=== PATIENT | female | born 1975 | race Caucasian/White ===

== ENCOUNTER 2019-02-13 20:11 | Emergency (ER) | payer MEDICAID ==
[~2019-02-13] VITALS: Ht 157.5 cm; Wt 77.9 kg
[2019-02-13 20:14] VITALS: Ht 157.5 cm; Wt 77.9 kg
[2019-02-13] MEDS ORDERED: ALBU18HF INHALATION (20:50)
[2019-02-13] MEDS ORDERED: PROM5SYR2 PO (20:50)
[2019-02-13] MEDS ORDERED: NPH10OT LEFT EAR (20:50)
--- NOTE | 2019-02-13 20:56 | ERD ---
ER Documentation Chief Complaint Chief Complaint cough, runny nose, ST, and congestion x 1 week HPI 44-year-old female patient with complaint of cough, runny nose, sore throat, congestion, and left ear pain for the past week. Patient also states that she has been having intermittent fevers. The denies hemoptysis, abdominal pain, wheezing, respiratory distress, stridor, trismus, drooling, difficulty swallowing. Denies allergies. ROS All systems reviewed and are negative except as per history of present illness. Medications Home Meds Active Scripts Albuterol Sulfate* (Ventolin HFA*) 18 Gm Hfa.aer.ad, 2 PUFF INHALATION Q4H, #1 INHALER Prov:VANDA GUNTER 02/13/19 Neomycin/Polymyxin/Hydrocort* (Cortisporin* Otic) 10 Ml Susp, 4 DROP LEFT EAR QID for 7 Days, EA Prov:VANDA GUNTER 02/13/19 Promethazine HCl/Codeine (Prometh-Codein 6.25-10 mg/5 ml) 5 Ml Syrup, 5 ML PO Q4, #4 OZ Prov:VANDA GUNTER 02/13/19 Allergies Allergies: Coded Allergies: No Known Allergy (Unverified , 02/13/19) PMhx/Soc Hx Alcohol Use: No Hx Substance Use: No Hx Tobacco Use: No Smoking Status: Never smoker FmHx Family History: No diabetes, No coronary disease, No other Physical Exam Vitals Vital Signs Date Temp Pulse Resp B/P (MAP) Pulse Ox O2 O2 Flow FiO2 Time Delivery Rate 02/13/19 99.8 103 20 187/80 97 20:14 (115) Physical Exam Const: No acute distress Head: Atraumatic Eyes: Normal Conjunctiva ENT: Normal External Ears, Nose and Mouth. Left ear canal is moderately edematous and erythematous, without discharge.. TMs are pearly aviles bilaterally with no bulging. There is no mastoid tenderness to palpation, edema, or erythema bilaterally. Uvula is midline. Tonsils are nonedematous erythematous without exudates. There are no peritonsillar masses noted. Neck: Full range of motion. No meningismus. Resp: Mild wheezing and rhonchi heard bilaterally. There are no crackles. Cardio: Regular rate and rhythm, no murmurs Abd: Soft, non tender, non distended. Normal bowel sounds Skin: No petechiae or rashes Back: No midline or flank tenderness Ext: No cyanosis, or edema Neur: Awake and alert Psych: Normal Mood and Affect Procedures/MDM MDM: Patient's presentation is consistent with possible bronchitis as well as otitis externa. Patient was given albuterol to be used as needed. Patient prescribed Cortisporin for possible otitis externa. Patient given promethazine for cough. Patient advised to only use at nighttime as it may make her tired. Low suspicion for mastoiditis, pneumonia, tuberculosis, retropharyngeal abscess, Simeon's angina, epiglottitis, or any other emergent condition. Patient discharged with strict ER precautions. Patient advised to follow up with PMD. All questions answered at discharge. Departure Diagnosis: Primary Impression: Common cold Additional Impression: Otitis externa Condition: Stable Patient Instructions: Adult Self-Care for Colds, Otitis Externa (Child), External Ear Infection (Adult) Additional Instructions: FOLLOW UP WITH YOUR PRIMARY CARE PHYSICIAN TOMORROW.Return to this facility if you are not improving as expected. VANDA GUNTER February 13, 2019 20:56
[2019-02-13 21:20] VITALS: BP 165/81; PULSE 96; RESP 20
== END 2019-02-13 21:22 | disposition home or self-care (01) ==
LOC: FTE 20:11
DX: J00 Acute nasopharyngitis [common cold] (principal); H60.92 Unspecified otitis externa, left ear
CPT/HCPCS: 99283